=== PATIENT | male | born 1990 | race Caucasian/White ===

== ENCOUNTER 2017-06-06 19:00 | Emergency (ER) | payer MEDICAID, OTHER ==
[2017-06-06] MEDS ORDERED: CEPHALEXIN 500 MG CAPSULE PO ONE (21:36)
--- NOTE | 2017-06-06 21:36 | ER Document Report ---
HPI - HPI Patient complains to provider of: left facial swelling Pain Level: 5 Context: Patient is a 26-year-old male who comes emergency department for chief complaint of swelling to the left side of his face. He states this started yesterday but continued to worsen today. He states he was seen at urgent care and "they told me to come here for labs". He denies any dental problems, denies sore throat, denies neck pain. He states he has had this several times in the past but he is not sure what the difficulty is. He denies any daily medications, PMH of tonsillectomy and orthopedic surgery. - CARDIOVASCULAR Cardiovascular: DENIES: Chest pain - DERM Skin Color: Normal Past Medical History - General Information source: Patient - Social History Smoking Status: Never Smoker Frequency of alcohol use: None Drug Abuse: None Lives with: Family Family History: Reviewed & Not Pertinent - Medical History Medical History: Negative Renal/ Medical History: Denies: Hx Peritoneal Dialysis Past Surgical History: Reports: Hx Orthopedic Surgery, Hx Tonsillectomy - Immunizations Immunizations up to date: Yes Vertical Provider Document - CONSTITUTIONAL General Appearance: WD/WN, No Apparent Distress - INFECTION CONTROL TRAVEL OUTSIDE OF THE [place] IN LAST 30 DAYS: No - HEENT HEENT: negative: Normal ENT Exam - Patient with left facial swelling, underneath the tongue there appears to be slight swelling at the opening of the duct of the salivary gland, normal pharyngeal exam, no lymphadenopathy, no swelling of the neck, normal dental examination - NECK Neck: Normal Inspection - RESPIRATORY Respiratory: Breath Sounds Normal, No Respiratory Distress O2 Sat by Pulse Oximetry: 96 - CARDIOVASCULAR Cardiovascular: Regular Rate, Regular Rhythm - GI/ABDOMEN Gastrointestinal: Abdomen Soft, Abdomen Non-Tender - MUSCULOSKELETAL/EXTREMETIES Musculoskeletal/Extremeties: MAEW, FROM, Non-Tender - DERM Integumentary: Warm, Dry, No Rash Course - Re-evaluation Re-evalutation: Patient is in no distress. He does not appear to be having any pain with the swelling of the face. Based on the location and his examination I suspect this is a salivary gland swelling gland swelling. I discussed treatment of this. Patient will be using hard candies, discussed therapies for this at home as well , after discussion because of the amount of swelling patient will be placed on Keflex antibiotic as well. Discussed followup and return precautions, patient states understanding and agreement. - Vital Signs Vital signs: Temp Pulse Resp BP Pulse Ox 98.0 F 74 16 150/89 H 96 06/06/17 19:07 06/06/17 19:07 06/06/17 19:07 06/06/17 19:07 06/06/17 19:07 Discharge - Discharge Clinical Impression: Facial swelling Condition: Stable Disposition: HOME, SELF-CARE Additional Instructions: Your examination indicates a salivary gland duct obstruction. I recommend a hard candy such as lemon drops to help flush the gland and remove the swelling. Take the Keflex antibiotics as prescribed. Keep well hydrated, apply moist heat to the involved area, massage the gland, and "milk" the duct. Avoid drying agents such as benadryl for now. Return to the emergency department for any concerning worsening symptoms including swelling of the neck, difficulty swallowing, fever, or any other concerning symptoms. Prescriptions: Cephalexin Monohydrate [Keflex 500 mg Capsule] 500 mg PO QID #20 capsule
[2017-06-06 22:08] VITALS: BP 138/82
== END 2017-06-06 22:06 | disposition home or self-care (01) ==
LOC: ER 19:00
DX: R22.0 Localized swelling, mass and lump, head (principal)
CPT/HCPCS: 99283

== ENCOUNTER 2017-09-02 19:23 | Emergency (ER) | payer OTHER, MEDICAID ==
[2017-09-02 19:34] VITALS: BP 149/90
--- NOTE | 2017-09-02 20:45 | ER Document Report ---
ED Medical Screen (RME) - General Chief Complaint: Eye Pain Stated Complaint: SWOLLEN EYE Time Seen by Provider: 09/02/17 20:44 Notes: Patient presents with the spontaneous onset of left eye swelling. He states he was also slurring his words today and the left side of his face feels numb. He states he has had a headache dizziness and vomiting as well. He states he does not know of any type of trauma or bites to the eye. He states his vision is unchanged. TRAVEL OUTSIDE OF THE [place] IN LAST 30 DAYS: No - Related Data Allergies/Adverse Reactions: No Known Allergies Allergy (Verified 09/02/17 19:24) Past Medical History - Social History Frequency of alcohol use: None Drug Abuse: None Renal/ Medical History: Denies: Hx Peritoneal Dialysis Past Surgical History: Reports: Hx Orthopedic Surgery, Hx Tonsillectomy - Immunizations Immunizations up to date: Yes Physical Exam - Vital signs Vitals: Temp Pulse Resp BP Pulse Ox 98.4 F 87 18 149/90 H 97 09/02/17 19:34 09/02/17 19:34 09/02/17 19:34 09/02/17 19:34 09/02/17 19:34 Course - Vital Signs Vital signs: Temp Pulse Resp BP Pulse Ox 98.4 F 87 18 149/90 H 97 09/02/17 19:34 09/02/17 19:34 09/02/17 19:34 09/02/17 19:34 09/02/17 19:34
[2017-09-02 21:08] LABS: ABSOLUTE EOSINOPHILS # (AUTO) 0.7 10^3/uL (0.0-0.6); ABSOLUTE LYMPHOCYTES (AUTO) 2.5 10^3/uL (0.5-4.7); ABSOLUTE MONOCYTES (AUTO) 0.6 10^3/uL (0.1-1.4); ABSOLUTE NEUT (AUTO) 3.5 10^3/uL (1.7-8.2); BASOPHILS % (AUTO) 0.6 % (0-2); EOSINOPHILS % (AUTO) 9.1 % (0-6); HEMATOCRIT 42.7 % (37.9-51.0); LYMPHOCYTES % (AUTO) 34.3 % (13-45); MEAN CORPUSCULAR HEMOGLOBIN 29.3 pg (27.0-33.4); MEAN CORPUSCULAR HGB CONC 35.1 g/dL (32.0-36.0); MEAN CORPUSCULAR VOLUME 84 fl (80-97); MONOCYTES % (AUTO) 8.4 % (3-13); PLATELET COUNT 178 10^3/uL (150-450); RED BLOOD COUNT 5.11 10^6/uL (4.35-5.55); RED CELL DISTRIBUTION WIDTH 12.7 % (11.5-14.0); SEGMENTED NEUTROPHILS % (AUTO) 47.6 % (42-78); TOTAL CELLS COUNTED % (AUTO) 100 %; WHITE BLOOD COUNT 7.3 10^3/uL (4.0-10.5)
--- NOTE | 2017-09-02 21:16 | RADIOLOGY REPORT (SQ) ---
EXAM DESCRIPTION: CT HEAD WITHOUT COMPLETED DATE/TIME: 09/02/2017 9:06 pm REASON FOR STUDY: pain/swelling/neuro changes COMPARISON: None. TECHNIQUE: Axial images acquired through the brain without intravenous contrast. Images reviewed wi th bone, brain and subdural windows. Images stored on PACS. All CT scanners at this facility use dose modulation, iterative reconstruction, and/or weight based d osing when appropriate to reduce radiation dose to as low as reasonably achievable (ALARA). [facility]: Dose Right [facility]: CareDose [facility]: Dose Right [facility]: Teradose 4D [facility]: Smart [employer] RADIATION DOSE: CT Rad equipment meets quality standard of care and radiation dose reduction techniq ues were employed. CTDIvol: 64.6 mGy. DLP: 1034 mGy-cm. mGy. LIMITATIONS: None. FINDINGS: VENTRICLES: Normal size and contour. CEREBRUM: No masses. No hemorrhage. No midline shift. No evidence for acute infarction. Normal gra y/white matter differentiation. No areas of low density in the white matter. CEREBELLUM: No masses. No hemorrhage. No alteration of density. No evidence for acute infarction. EXTRAAXIAL SPACES: No fluid collections. No masses. ORBITS AND GLOBE: No intra- or extraconal masses. Normal contour of globe without masses. CALVARIUM: No fracture. PARANASAL SINUSES: No fluid or mucosal thickening. SOFT TISSUES: No mass or hematoma. OTHER: No other significant finding. IMPRESSION: NORMAL BRAIN CT WITHOUT CONTRAST. EVIDENCE OF ACUTE STROKE: NO. COMMENT: Quality ID # [id number]: Final reports with documentation of one or more dose reduction techniques (e.g., Automated exposure control, adjustment of the mA and/or kV according to patient size, use of iterative reconstruction technique) TECHNICAL DOCUMENTATION: JOB ID: [id number] [employer]- All Rights Reserved
--- NOTE | 2017-09-02 21:17 | RADIOLOGY REPORT (SQ) ---
EXAM DESCRIPTION: CT FACIAL AREA WITHOUT COMPLETED DATE/TIME: 09/02/2017 9:06 pm REASON FOR STUDY: pain/swelling/neuro changes COMPARISON: None. TECHNIQUE: Noncontrasted images through the facial bones and orbits windowed for bone and soft tissu e. Additional coronal and sagittal reconstructed images reviewed. All images stored on PACS. All CT scanners at this facility use dose modulation, iterative reconstruction, and/or weight based d osing when appropriate to reduce radiation dose to as low as reasonably achievable (ALARA). [facility]: Dose Right [facility]: CareDose [facility]: Dose Right [facility]: Teradose 4D [facility]: [employer] RADIATION DOSE: CT Rad equipment meets quality standard of care and radiation dose reduction techniq ues were employed. CTDIvol: 30.4 mGy. DLP: 606 mGy-cm. mGy. LIMITATIONS: None. FINDINGS: FACIAL BONES: No fracture or bone lesion. ORBITS: Intact. No fracture. Symmetric intact globes and retroorbital soft tissues. PARANASAL SINUSES: Clear. No significant mucosal thickening, mass or fluid. No nasal polyps. Maxill sue sinus outlets are patent. SOFT TISSUES: Left preorbital edema. INFERIOR BRAIN: Limited view. No acute findings. OTHER: No other significant finding. IMPRESSION: Left preorbital edema. TECHNICAL DOCUMENTATION: JOB ID: [id number] Quality ID # [id number]: Final reports with documentation of one or more dose reduction techniques (e.g., Au tomated exposure control, adjustment of the mA and/or kV according to patient size, use of iterative reconstruction technique) 2010 [employer]- All Rights Reserved
[2017-09-02 21:26] LABS: ALANINE AMINOTRANSFERASE 67 U/L (21-72); ALBUMIN 4.4 g/dL (3.5-5.0); ALKALINE PHOSPHATASE 106 U/L (38-126); ANION GAP 11 (5-19); ASPARTATE AMINO TRANSFERASE 35 U/L (17-59); BILIRUBIN,DIRECT 0.3 mg/dL (0.0-0.4); BILIRUBIN,TOTAL 0.4 mg/dL (0.2-1.3); BLOOD UREA NITROGEN 14 mg/dL (7-20); CARBON DIOXIDE 28 mmol/L (22-30); CHLORIDE 103 mmol/L (98-107); GLUCOSE 118 mg/dL (75-110); POTASSIUM 3.9 mmol/L (3.6-5.0); SODIUM 142.1 mmol/L (137-145)
[2017-09-02] MEDS ORDERED: DIPHENHYDRAMINE HCL 50 MG/ML VIAL IV ONE (22:58)
[2017-09-02] MEDS ORDERED: METOCLOPRAMIDE HCL INJ/PF 10 MG/2 ML SDV IV ONE (22:58)
[2017-09-02] MEDS ORDERED: NORMAL SALINE 1000 ML 1,000 ML IV ONE (22:59)
--- NOTE | 2017-09-02 23:53 | ER Document Report ---
ED General - General Chief Complaint: Eye Pain Stated Complaint: SWOLLEN EYE Time Seen by Provider: 09/02/17 20:44 Notes: Patient is a 26-year-old male presents with complaint of onset of some left- sided facial swelling. Patient says that on Thursday night he was driving home from [place]. He got sick and start have a lot of vomiting on his way home. When he gone to [facility] decided to stop and take a nap. When he woke up Thursday he had onset of facial swelling he also developed some dizziness and felt some numbness to the left side of his face and also at times had slurred speech. Slurred speech has resolved. He says left side of his face still feels numb. He says the function of the left and his face may have been a little bit off at first but now feels normal. He says shortly after the symptoms started he developed a headache. He still currently ongoing and is mostly over the forehead. No recent fevers. No recent infections. He did vomit. He is no longer nauseous. No focal weakness or numbness into his extremities. Denies any blurred vision. He does have some photophobia. No previous history of migraines. No other complaints at this time. TRAVEL OUTSIDE OF THE [place] IN LAST 30 DAYS: No - Related Data Allergies/Adverse Reactions: No Known Allergies Allergy (Verified 09/02/17 19:24) Past Medical History - Social History Smoking Status: Never Smoker Frequency of alcohol use: None Drug Abuse: None Family History: Reviewed & Not Pertinent Patient has suicidal ideation: No Patient has homicidal ideation: No Renal/ Medical History: Denies: Hx Peritoneal Dialysis Past Surgical History: Reports: Hx Orthopedic Surgery, Hx Tonsillectomy - Immunizations Immunizations up to date: Yes Review of Systems - Review of Systems Notes: My Normal Review Basic REVIEW OF SYSTEMS: CONSTITUTIONAL : Denies fever, chills, or sweats. Denies recent illness. EENT: Swelling below left eye. RESPIRATORY: Denies cough, cold, or chest congestion. Denies shortness of breath, difficulty breathing, or wheezing. GASTROINTESTINAL: Denies abdominal pain. Denies nausea, vomiting, or diarrhea. MUSCULOSKELETAL: Denies neck or back pain or joint pain or swelling. SKIN: Denies rash or skin lesions. NEUROLOGICAL: Denies altered mental status or loss of consciousness. Has a headache. Denies weakness or paralysis of extremities or loss of use of either side. Denies problems with gait or speech. Numbness to left side of face. ALL OTHER SYSTEMS REVIEWED AND NEGATIVE. Physical Exam - Vital signs Vitals: Temp Pulse Resp BP Pulse Ox 98.4 F 87 18 149/90 H 97 09/02/17 19:34 09/02/17 19:34 09/02/17 19:34 09/02/17 19:34 09/02/17 19:34 - Notes Notes: General Appearance: Well nourished, alert, cooperative, no acute distress, mild to moderate obvious discomfort. Vitals: reviewed, See vital signs table. Head: Some mild swelling to the left eye. No redness or increased warmth to the face. Eyes: Obvious photophobia on exam. Both pupils are reactive to light. Left pupil may be very slightly smaller than the right. Mouth: No decreasd moisture Throat: No tonsillar inflammation, No airway obstruction, No lymphadenopathy Neck: Supple, no neck tenderness, no neck swelling. Lungs: No wheezing, No rales, No rhonci, No accessory muscle use, good air exchange bilaterally. Heart: Normal rate, Regular rythm, No murmur, no rub Abdomen: Normal BS, soft, No rigidity, No abdominal tenderness, No guarding, no rebound, no abdominal masses, no organomegaly Extremities: strength 5/5 in all extremities, good pulses in all extremities, no swelling or tenderness in the extremities, no edema. Skin: warm, dry, appropriate color, no rash Neuro: speech clear, oriented x 3, normal affect, responds appropriately to questions. Cranial nerves II through XII are intact. Left pupil may be just slightly smaller than the right pupil. It does react normally to light. Good extraocular motion. Patient has normal symmetric facial movements. He does have some numbness to palpation or less of his face in comparison to the right. He does move all extremities without difficulty. Normal gait. Course - Re-evaluation Re-evalutation: 09/03/17 01:52 Patient's headache is improved. So the numbness is gone. He still has no pain with extraocular motion of his eyes. He still has a swelling below his left eye over the cheek. Cranial nerves are still intact. He looks well. Pupils are equal and reactive to light. I still cannot make sense of his neurologic symptoms that he had in conjunction with the swelling. I have called [facility] consult want to speak with the neurologist to get further recommendations. CTa venous phase study was negative for venous sinus thrombosis. 09/03/17 04:21 I heard back from the neurologist at [facility]. His name is Dr. Silverio Liz. I went over in depth the patient's symptoms and my treatment and workup thus far. He says that being the patient's neurologic symptoms resolved with medication treatment and his CT a with venous phase study is negative he does not feel the patient needs any further workup. He has no further recommendations at this time. I did talk to patient length. Patient says he is continues to feel very well. I did do repeat neuro exam. Cranial nerves II through XII are intact. Pupils are equal and reactive to light. He is able stand and walk without difficulty. He has normal gait. I told him that the exact cause of what happened is not 100% clear however all his workup and studies are negative at this time. I talked about the studies be performed the results of the treatment. I informed him that he should still have a low threshold to return to ER immediately if he has any recurrence of headache, any recurrence of neurologic symptoms such as dizziness, severe headache, facial numbness, or slurred speech. Informed him to return to ER immediately if he has any fevers or increased swelling. I told him at this time I think it is less likely this is a preseptal cellulitis however being that he does have the swelling to that area of his face with just very slight redness to think is appropriate to do a trial of Keflex as if there is an associated preseptal cellulitis without treatment this could become much worse and cause a septal cellulitis. Patient is understanding of this and agrees to do the antibiotics. Patient agrees to follow-up with his doctor [facility] for reevaluation. Dictation of this chart was performed using voice recognition software; therefore, there may be some unintended grammatical errors. - Vital Signs Vital signs: Temp Pulse Resp BP Pulse Ox 98.4 F 87 18 149/90 H 97 09/02/17 19:34 09/02/17 19:34 09/02/17 19:34 09/02/17 19:34 09/02/17 19:34 - Laboratory Result Diagrams: 09/02/17 20:50 09/02/17 20:50 Laboratory results interpreted by me: 09/02/17 09/02/17 20:50 20:50 Eosinophils % 9.1 H Absolute Eosinophils 0.7 H Glucose 118 H Discharge - Discharge Clinical Impression: Facial swelling Headache Qualifiers: Headache type: unspecified Headache chronicity pattern: acute headache Intractability: not intractable Qualified Code(s): R51 - Headache Condition: Good Disposition: HOME, SELF-CARE Additional Instructions: Your CT scans and blood work did not show any concerning results. You do still have some facial swelling. This can sometimes be caused by an infection; therefore, I have prescribed an antibiotic called Keflex. Please take the antibiotic has prescribed. Please stop the antibiotic and return to [facility] ER if you have diarrhea Please follow up with your doctor [facility] the [facility] in 1-2 days for reevaluation. Please return to the ER immediately if you have fevers, increasing facial swelling, recurring headache, recurring facial numbness, or any new or recurrent symptoms. Prescriptions: Cephalexin Monohydrate [Keflex 500 mg Capsule] 500 mg PO Q6H 5 Days capsule Forms: Return to Work
--- NOTE | 2017-09-03 01:02 | RADIOLOGY REPORT (SQ) ---
EXAM DESCRIPTION: CTA HEAD CLINICAL HISTORY: 26 years Male, run as a venous phase to check ofr sinus thrombosi COMPARISON: 09/02/2016. TECHNIQUE: 70 mL Isovue 370 CTA/CTV. Multiplanar reformat. This exam was performed according to our departmental dose-optimization program, which includes automated exposure control, adjustment of the mA and/or kV according to patient size and/or use of iterative reconstruction technique. FINDINGS: CTA/CTV appearance of the brain appears unremarkable. [place] is intact with no stenosis, no occlusion, no aneurysm, no vasculitides. Unremarkable CTV appearance of the sagittal sinuses, transverse sinuses, straight sinus, cavernous sinus, and cerebral veins. IMPRESSION: No acute findings.
[2017-09-03] MEDS ORDERED: CEPHALEXIN 500 MG CAPSULE PO ONE (03:49)
== END 2017-09-03 04:02 | disposition home or self-care (01) ==
LOC: ER 19:23
DX: R22.0 Localized swelling, mass and lump, head (principal); R51 Headache; H57.12 Ocular pain, left eye; R20.0 Anesthesia of skin; R47.81 Slurred speech
CPT/HCPCS: 99284; 96361; 96374; 96375; 36415; 85025; 80053; 70450; 70496; 70486; J1200; J2765; J7030

== ENCOUNTER 2017-11-04 09:39 | Emergency (ER) | payer OTHER, MEDICAID ==
--- NOTE | 2017-11-04 10:16 | ER Document Report ---
ED Medical Screen (RME) - General Chief Complaint: Facial Swelling Stated Complaint: FACIAL SWELLING Time Seen by Provider: 11/04/17 10:13 Notes: Patient presents with left maxillary swelling since yesterday. Patient states this is approximate the fourth time this has happened. States she has never been given a diagnosis. States she has never had any type of imaging. Patient denies any type of sinus congestion or nasal discharge. He denies any problems with his eyes. He denies any tooth pain. On exam patient's parotid and salivary glands are unremarkable. All teeth are nontender and gums and teeth are unremarkable. Patient has very firm tender induration over the left maxillary area. Left nares does appear to be hyperemic and has some hypertrophy of the turbinates. Patient's lacrimal duct does not appear significantly tender nor is discharge seen. TRAVEL OUTSIDE OF THE [place] IN LAST 30 DAYS: No - Related Data Allergies/Adverse Reactions: No Known Allergies Allergy (Verified 09/02/17 19:24) Past Medical History - Social History Chew tobacco use (# tins/day): No Frequency of alcohol use: None Drug Abuse: None Renal/ Medical History: Denies: Hx Peritoneal Dialysis Past Surgical History: Reports: Hx Orthopedic Surgery, Hx Tonsillectomy - Immunizations Immunizations up to date: Yes Physical Exam - Vital signs Vitals: Temp Pulse Resp BP Pulse Ox 98.6 F 72 18 141/84 H 98 11/04/17 10:01 11/04/17 10:01 11/04/17 10:01 11/04/17 10:01 11/04/17 10:01 Course - Vital Signs Vital signs: Temp Pulse Resp BP Pulse Ox 98.6 F 72 18 141/84 H 98 11/04/17 10:01 11/04/17 10:01 11/04/17 10:01 11/04/17 10:01 11/04/17 10:01
[2017-11-04] MEDS ORDERED: DIPHENHYDRAMINE HCL 50 MG/ML VIAL IV ONE (10:52)
[2017-11-04] MEDS ORDERED: FAMOTIDINE INJ/PF 20 MG/2 ML SDV IV ONE (10:52)
[2017-11-04] MEDS ORDERED: METHYLPREDNISOLONE INJ 125 MG/2 ML SDV IV ONE (10:52)
[2017-11-04 11:25] LABS: ABSOLUTE BASOPHILS # (AUTO) 0.1 10^3/uL (0.0-0.2); ABSOLUTE EOSINOPHILS # (AUTO) 0.6 10^3/uL (0.0-0.6); ABSOLUTE LYMPHOCYTES (AUTO) 2.4 10^3/uL (0.5-4.7); ABSOLUTE MONOCYTES (AUTO) 0.5 10^3/uL (0.1-1.4); ABSOLUTE NEUT (AUTO) 2.7 10^3/uL (1.7-8.2); BASOPHILS % (AUTO) 0.8 % (0-2); EOSINOPHILS % (AUTO) 10.2 % (0-6); HEMATOCRIT 43.9 % (37.9-51.0); HEMOGLOBIN 15.3 g/dL (13.5-17.0); LYMPHOCYTES % (AUTO) 37.9 % (13-45); MEAN CORPUSCULAR HEMOGLOBIN 29.4 pg (27.0-33.4); MEAN CORPUSCULAR VOLUME 84 fl (80-97); MONOCYTES % (AUTO) 8.4 % (3-13); PLATELET COUNT 181 10^3/uL (150-450); RED BLOOD COUNT 5.22 10^6/uL (4.35-5.55); RED CELL DISTRIBUTION WIDTH 13.3 % (11.5-14.0); SEGMENTED NEUTROPHILS % (AUTO) 42.7 % (42-78); TOTAL CELLS COUNTED % (AUTO) 100 %; WHITE BLOOD COUNT 6.3 10^3/uL (4.0-10.5)
[2017-11-04 11:38] LABS: ANION GAP 12 (5-19); BLOOD UREA NITROGEN 21 mg/dL (7-20); CARBON DIOXIDE 27 mmol/L (22-30); CHLORIDE 102 mmol/L (98-107); GLUCOSE 89 mg/dL (75-110); POTASSIUM 4.3 mmol/L (3.6-5.0); SODIUM 141.1 mmol/L (137-145)
--- NOTE | 2017-11-04 11:50 | RADIOLOGY REPORT (SQ) ---
EXAM DESCRIPTION: CT FACIAL AREA WITH COMPLETED DATE/TIME: 11/04/2017 11:26 am REASON FOR STUDY: facial swelling/pain COMPARISON: 09/02/2017. TECHNIQUE: Post contrast images through the facial bones and orbits windowed for bone and soft tissu e. Additional coronal and sagittal reconstructed images reviewed. All images stored on PACS. All CT scanners at this facility use dose modulation, iterative reconstruction, and/or weight based d osing when appropriate to reduce radiation dose to as low as reasonably achievable (ALARA). [facility]: Dose Right [facility]: CareDose [facility]: Dose Right [facility]: Teradose 4D [facility]: [employer] CONTRAST TYPE AND DOSE: contrast/concentration: Isovue 370.00 mg/ml; Total Contrast Delivered: 50.0 ml; Total Saline Delivered: 49.9 ml RENAL FUNCTION: None required. The patient is less than 50 years old. RADIATION DOSE: CT Rad equipment meets quality standard of care and radiation dose reduction techniq ues were employed. CTDIvol: 30.4 mGy. DLP: 579 mGy-cm. . LIMITATIONS: None. FINDINGS: FACIAL BONES: No fracture or bone lesion. ORBITS: Intact. No fracture. Symmetric intact globes and retroorbital soft tissues. PARANASAL SINUSES: Clear. No significant mucosal thickening, mass or fluid. No nasal polyps. Maxilla ry sinus outlets are patent. SOFT TISSUES: Again seen is mild free orbital soft tissue edema. Inflammation extends inferiorly in the subcutaneous tissues overlying the left maxillary sinus. No focal fluid collections. INFERIOR BRAIN: Limited view. No acute findings. OTHER: No other significant finding. IMPRESSION: INFLAMMATORY CHANGES IN THE SUBCUTANEOUS TISSUES OVERLYING THE LEFT MAXILLARY SINUS WHIC H HAS PROGRESSED SINCE THE PRIOR STUDY. NO FOCAL ABSCESS VISUALIZED. TECHNICAL DOCUMENTATION: JOB ID: [id number] Quality ID # [id number]: Final reports with documentation of one or more dose reduction techniques (e.g., Au tomated exposure control, adjustment of the mA and/or kV according to patient size, use of iterative reconstruction technique) 2010 [employer]- All Rights Reserved Reading location - IP/workstation name: [email or web address]
[2017-11-04] MEDS ORDERED: PREDNISONE 20 MG TABLET PO ONE (12:13)
--- NOTE | 2017-11-04 12:13 | ER Document Report ---
ED General - General Chief Complaint: Facial Swelling Stated Complaint: FACIAL SWELLING Time Seen by Provider: 11/04/17 10:13 TRAVEL OUTSIDE OF THE [place] IN LAST 30 DAYS: No - HPI Patient complains to provider of: facial swelling Notes: Patient coming in for evaluation of left facial swelling. Patient has recurrent episodes of facial swelling in the past. Patient has had a workup here including multiple CTs of his head that were nondiagnostic. Patient states upon his last visit was given Keflex however the swelling have resolved by the next day. Patient also states he had recently underwent allergy testing which was all negative. Patient states woke up this morning with some facial swelling denies any new products in the home. Denies any fevers chills nausea vomiting diarrhea denies any shortness of breath. Patient has obvious facial swelling in the inferior orbit region to the upper lip. Patient speaking in complete sentences no signs of any respiratory distress at this time. - Related Data Allergies/Adverse Reactions: No Known Allergies Allergy (Verified 09/02/17 19:24) Past Medical History - Social History Smoking Status: Never Smoker Chew tobacco use (# tins/day): No Frequency of alcohol use: None Drug Abuse: None Family History: Reviewed & Not Pertinent Patient has suicidal ideation: No Patient has homicidal ideation: No Renal/ Medical History: Denies: Hx Peritoneal Dialysis Past Surgical History: Reports: Hx Orthopedic Surgery, Hx Tonsillectomy - Immunizations Immunizations up to date: Yes Review of Systems - Review of Systems Constitutional: Other - Facial swelling EENT: No symptoms reported Cardiovascular: No symptoms reported Respiratory: No symptoms reported Gastrointestinal: No symptoms reported Genitourinary: No symptoms reported Male Genitourinary: No symptoms reported Musculoskeletal: No symptoms reported Skin: No symptoms reported Hematologic/Lymphatic: No symptoms reported Neurological/Psychological: No symptoms reported -: Yes All other systems reviewed and negative Physical Exam - Vital signs Vitals: Temp Pulse Resp BP Pulse Ox 98.6 F 72 18 141/84 H 98 11/04/17 10:01 11/04/17 10:01 11/04/17 10:01 11/04/17 10:01 11/04/17 10:01 Interpretation: Normal - General General appearance: Appears well, Alert - HEENT Head: Normocephalic, Atraumatic Eyes: Normal Conjunctiva: Normal Cornea: Normal Pupils: PERRL Notes: Patient with edema to the inferior orbit on the left side the face does not cross nasal bridge to the left upper lip which does not cross the midline. There is no redness or erythema there is no warmth. There is no drainage from the nasolacrimal duct. Minimal tenderness to palpation over the maxillary sinus. - Respiratory Respiratory status: No respiratory distress Chest status: Nontender Breath sounds: Normal Chest palpation: Normal - Cardiovascular Rhythm: Regular Heart sounds: Normal auscultation Murmur: No - Abdominal Inspection: Normal Distension: No distension Bowel sounds: Normal Tenderness: Nontender Organomegaly: No organomegaly - Back Back: Normal, Nontender - Extremities General upper extremity: Normal inspection, Nontender, Normal color, Normal ROM , Normal temperature General lower extremity: Normal inspection, Nontender, Normal color, Normal ROM , Normal temperature, Normal weight bearing. No: Jose Miguel's sign - Neurological Neuro grossly intact: Yes Cognition: Normal Orientation: AAOx4 Steffen Coma Scale Eye Opening: Spontaneous Temple Coma Scale Verbal: Oriented Temple Coma Scale Motor: Obeys Commands Steffen Coma Scale Total: 15 Speech: Normal Motor strength normal: LUE, RUE, LLE, RLE Sensory: Normal - Psychological Associated symptoms: Normal affect, Normal mood - Skin Skin Temperature: Warm Skin Moisture: Dry Skin Color: Normal Course - Re-evaluation Re-evalutation: 11/04/17 14:[address] scan was read as inflammatory changes however I did contact the radiologist obvious edema fluidic changes on the CAT scan of the face however no signs of overt abscess. Explained to the radiologist patient has no overlying erythema states is consistent with more less edema and not inflammation or infection. No white count. Patient was given Benadryl Solu- Medrol and Pepcid with no resolution no worsening either. At this time concern for idiopathic angioedema. Patient is not on any medication calls the symptoms patient is also not have any airway compromise. We will continue to treat as an allergic reaction with steroids Benadryl and Pepcid. Patient was encouraged to follow[facility]up with [facility] for further testing for possible idiopathic angioedema. Patient agrees with discharge and plan. - Vital Signs Vital signs: Temp Pulse Resp BP Pulse Ox 97.6 F 57 L 18 124/71 100 11/04/17 12:44 11/04/17 12:44 11/04/17 10:01 11/04/17 12:44 11/04/17 12:44 - Laboratory Result Diagrams: 11/04/17 11:00 11/04/17 11:00 Laboratory results interpreted by me: 11/04/17 11/04/17 11:00 11:00 Eosinophils % 10.2 H BUN 21 H Discharge - Discharge Clinical Impression: Left facial swelling Condition: Good Disposition: HOME, SELF-CARE Instructions: Acute Allergic Reaction ([facility]), Use of Diphenhydramine Additional Instructions: Your CAT scan today does not show any underlying abscess infection which would cause your symptoms. Being that this is a recurring issue for you I would be concerned about possible idiopathic angioedema. There is special blood work that your [facility] provider or primary care provider can perform looking at your complement factors and C1 esterase activity to further investigate idiopathic angioedema. I highly recommend following up with your providers for this laboratory testing. your labs here in ER showed no signs of overt infection or electrolyte abnormalities I will treat you as underlying allergic reaction with steroids would recommend also taking Pepcid and Benadryl as needed. Return to the ER if you develop a fever or worsening of your symptoms Prescriptions: Famotidine [Pepcid 20 mg Tablet] 20 mg PO BID #20 tablet Prednisone [Deltasone] 60 mg PO DAILY #24 tablet Forms: Return to Work
[2017-11-04 12:56] VITALS: BP 124/71
== END 2017-11-04 12:56 | disposition home or self-care (01) ==
LOC: ER 09:39
DX: R22.0 Localized swelling, mass and lump, head (principal)
CPT/HCPCS: 99284; 96374; 96375; 36415; 85025; 80048; 70487; J1200; J2930; J7512; S0028